=== PATIENT | male | born 2005 | race Caucasian/White ===

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

== ENCOUNTER 2025-01-14 02:35 | Emergency (ER) | payer BC, OTHER ==
[~2025-01-14] VITALS: Ht 185.4 cm; Wt 88.5 kg
[~2025-01-14 02:35] MED LIST changes: +AMOX-430 PO
[2025-01-14] MEDS ORDERED: LORAZEPAM INJ 2 MG/ML VIAL ONE ×2 (04:57→05:50)
[2025-01-14] MEDS: LORAZEPAM INJ 2 MG/ML VIAL IM ONE ×2 (05:00→05:53)
[2025-01-14 16:24] VITALS: BP 112/70; TEMP 98.8; O2SAT 98
== END 2025-01-14 16:24 | disposition home or self-care (01) ==
LOC: ER 02:40
DX: F10.129 Alcohol abuse with intoxication, unspecified (principal); Y90.9 Presence of alcohol in blood, level not specified; R41.82 Altered mental status, unspecified
CPT/HCPCS: 99285; 70450; 96372 ×2; 82962 ×2; J2060 ×2